=== PATIENT | female | born 1990 | race African-American/Black ===

== ENCOUNTER 2024-01-28 21:13 | Emergency (ER) | payer BC ==
[~2024-01-28] VITALS: Ht 175.3 cm; Wt 104.3 kg
[2024-01-28 21:23] VITALS: BP_SYST 135; PULSE 89; RESP 17; TEMP 97.2; O2SAT 98
[2024-01-28 22:32] LABS: EOSINOPHILS # (AUTO) 0.2 K/uL (0.0-0.4); EOSINOPHILS % (AUTO) 1.7 % (0.0-4.0); HEMOGLOBIN 12.8 g/dL (12.0-16.0); WHITE BLOOD COUNT (AUTO) 12.8 K/uL (4.8-10.8)
[2024-01-28 22:39] LABS: BASOPHILS % (AUTO) 0.3 % (0.0-2.0); HEMATOCRIT 37.3 % (36-48); LYMPHOCYTES # (AUTO) 4.1 K/uL (1.0-5.5); LYMPHOCYTES % (AUTO) 31.9 % (20.5-51.5); MEAN CORPUSCULAR HEMOGLOBIN 29 pg (27-31); MEAN CORPUSCULAR HGB CONC 34 % (32-36); MEAN CORPUSCULAR VOLUME 86 fL (79.0-98.0); MONOCYTES % (AUTO) 8.1 % (1.7-9.3); NEUTROPHILS # (AUTO) 7.4 K/uL (1.8-7.7); PLATELET COUNT (AUTO) 315 K/uL (130-430); RED BLOOD CELL COUNT(AUTO) 4.36 MIL/uL (4.2-6.2); RED CELL DISTRIBUTION WIDTH 13.6 % (9.0-15.0)
[2024-01-28 23:03] LABS: ANION GAP 8 (5-15); CALCIUM 9.2 mg/dL (8.4-11.0); CARBON DIOXIDE 29 mmol/L (23-29); CHLORIDE 105 mmol/L (98-107); CREATININE 0.79 mg/dL (0.55-1.30); GFR AFRICAN AMERICAN 107 mL/min (>90); GLUCOSE 72 mg/dL (74-106); POTASSIUM 3.5 mmol/L (3.5-5.1); SODIUM SERUM 142 mmol/L (136-145); UREA NITROGEN, BLOOD 9 mg/dL (8-21)
[2024-01-28 23:08] LABS: GFR NON AFRICAN-AMERICAN 88 mL/min (>90)
[2024-01-28 23:52] VITALS: BP_SYST 105; PULSE 89; RESP 20; TEMP 97.2; O2SAT 98
== END 2024-01-28 23:52 | disposition home or self-care (01) ==
LOC: SED 21:13
DX: M79.601 Pain in right arm (principal); R00.2 Palpitations; R20.0 Anesthesia of skin; F41.9 Anxiety disorder, unspecified
CPT/HCPCS: 36415; 71045; 80048; 81025; 84484; 85025; 93005; 99285